=== PATIENT | female | born 1945 | race Caucasian/White ===

== ENCOUNTER 2017-10-12 19:10 | Emergency (ER) | payer OTHER ==
[2017-10-12 19:31] VITALS: BP 130/81
--- NOTE | 2017-10-12 20:23 | UC ---
Respiratory Complaint HPI - HPI Summary HPI Summary: The patient is a 72-year-old female with a 3 day history of cough, shortness of breath, and low energy. She states she has felt feverish. If she attempts to take a deep breath and she develops paroxysms of coughing. Her cough has been productive of yellowish phlegm. She denies any history of asthma bronchitis or pneumonia. She does have a history of left breast cancer. - History of Current Complaint Chief Complaint: UCRespiratory Stated Complaint: SOB,COUGHS W/ DEEP BREATH IN Time Seen by Provider: 10/12/17 19:58 Hx Obtained From: Patient Onset/Duration: Gradual Onset, Lasting Days Timing: Constant Severity Initially: Mild Severity Currently: Moderate Pain Intensity: 0 Pain Scale Used: 0-10 Numeric Character: Cough: Productive Aggravating Factors: Exertion, Deep Breaths Alleviating Factors: Nothing Associated Signs And Symptoms: Positive: Dyspnea, Nasal Congestion - Allergies/Home Medications Allergies/Adverse Reactions: Allergies Allergy/AdvReac Type Severity Reaction Status Date / Time No Known Allergies Allergy Verified 10/12/17 19:31 Home Medications: Home Medications Anastrozole (NF) [Arimidex (NF)] 1 tab DAILY 10/12/17 [History Confirmed ] Atenolol TAB* [Tenormin TAB* 25 MG] 1 tab DAILY 10/12/17 [History Confirmed ] Magnesium Oxide [Magnesium] 1 tab DAILY 10/12/17 [History Confirmed 10/12/17] PMH/Surg Hx/FS Hx/Imm Hx Previously Healthy: Yes Cancer History: Breast Cancer - Surgical History Surgical History: Yes Surgery Procedure, Year, and Place: mastectomy. breast surgery - Family History Known Family History: Negative: Cardiac Disease, Hypertension, Respiratory Disease - Social History Alcohol Use: Rare Substance Use Type: None Smoking Status (MU): Never Smoked Tobacco Review of Systems Constitutional: Fatigue Skin: Negative Eyes: Negative ENT: Sinus Congestion Respiratory: Shortness Of Breath, Cough Cardiovascular: Negative Gastrointestinal: Negative Genitourinary: Negative Motor: Negative Neurovascular: Negative Musculoskeletal: Negative Neurological: Negative Psychological: Negative Is Patient Immunocompromised?: No All Other Systems Reviewed And Are Negative: Yes Physical Exam Triage Information Reviewed: Yes Appearance: Well-Appearing, No Pain Distress, Well-Nourished Vital Signs: Initial Vital Signs Temp 98.8 F 10/12/17 19:24 Pulse 71 07/17/18 19:24 Resp 16 10/12/17 19:24 BP 130/81 10/12/17 19:24 Pulse Ox 98 10/12/17 19:24 Vital Signs Reviewed: Yes Eyes: Positive: Conjunctiva Clear ENT: Positive: Hearing grossly normal. Negative: Nasal congestion, Nasal drainage, Trismus, Muffled voice, Dental tenderness Neck: Positive: Supple, Nontender, No Lymphadenopathy Respiratory: Positive: No respiratory distress, No accessory muscle use, Wheezing Cardiovascular: Positive: RRR, No Murmur Musculoskeletal: Positive: ROM Intact, No Edema Neurological: Positive: Alert Psychological Exam: Normal Skin Exam: Normal UC Diagnostic Evaluation - Laboratory O2 Sat by Pulse Oximetry: 98 - normal/not hypoxic - Radiology Xray Interpretation: No Acute Changes Radiology Interpretation Completed By: ED Physician Re-Evaluation - Re-Evaluation First Eval Re-Evaluation Time: 21:16 Change: Improved Comment: states she feel back to normal, lungs clear to auscultation Respiratory Course/Dx - Course Course Of Treatment: patient advised that I noted no pneumonia but that I was sure about her left humeral head findings. - Differential Dx/Diagnosis Provider Diagnoses: acute bronchitis with bronchospasm Discharge - Sign-Out/Discharge Documenting (check all that apply): Patient Departure - Discharge Plan Condition: Stable Disposition: HOME Patient Education Materials: Acute Bronchitis (ED), How to Use a Metered-Dose Inhaler (ED) Referrals: Kiana Michelle PA [Primary Care Provider] - 6 Days Additional Instructions: recheck for new or worsening symptoms I suggest you call her tomorrow late morning for official XR report [phone] - Billing Disposition and Condition Condition: STABLE Disposition: Home
[2017-10-12] MEDS ORDERED: Ipratropium 0.5MG/2.5ML NEB* 0.5 MG/2.5 ML NEB.SOLN INH ONE (20:32)
[2017-10-12] MEDS ORDERED: Albuterol 2.5 MG/3 ML NEB.SOL* (0.083%) INH ONE (20:32)
[2017-10-12] MEDS ORDERED: Amoxicillin PO (*) 500 MG CAP PO ONE (21:17)
[2017-10-12] MEDS ORDERED: predniSONE TAB* 20 MG PO ONE (21:18)
[2017-10-12] MEDS ORDERED: Albuterol HFA INHALER* 8 gm MDI INH ONE (21:19)
--- NOTE | 2017-10-13 07:47 | RAD ---
INDICATION: Cough and shortness of breath COMPARISON: Chest x-ray November 07, 2007 TECHNIQUE: PA and lateral views of the chest were obtained. FINDINGS: There are surgical clips overlying the left hemithorax. The heart and mediastinum are normal in size and contour. There is mild calcified atherosclerosis overlying the arch of the aorta. There is a small degree of asymmetric elevation of the left hemidiaphragm. The lungs are grossly clear. There is no evidence of large pleural effusion. There is mild sclerotic bony remodeling overlying the left humeral head consistent with degenerative change. There is no radiographic evidence of free air beneath the diaphragm IMPRESSION: No radiographic evidence of acute cardiopulmonary disease. R0
== END 2017-10-12 21:44 | disposition home or self-care (01) ==
LOC: UCCORT 19:10
DX: J20.9 Acute bronchitis, unspecified (principal); Z85.3 Personal history of malignant neoplasm of breast
CPT/HCPCS: 71046; 99213; A9270-GY; G0463; J7512